=== PATIENT | female | born 1975 | race Caucasian/White ===

== ENCOUNTER → 2020-04-16 | Outpatient (CLI) | payer OTHER ==
[~2020-04-16] MED LIST: ASCO-184 PO; ASPI81TA45 PO; BUSP7.5T5 PO; CALC1CAP8 PO; DULO30CA2 PO; FISH1CAP PO; LOSA1TAB25 PO; MELO7.5T31 PO; METF500T17 PO; OXYC5CAP2 PO; PRAV20TA2 PO; TRAM50TA2 PO; TRAZ50TA66 PO; VITAMIN B12 PO; [UNRECOGNIZED DRUG - OTHER] PO
[2020-04-16 12:12] LABS: BASOPHILS % (AUTO) 1 % (0-1); EOSINOPHILS % (AUTO) 1 % (1-7); LYMPHOCYTES % (AUTO) 21 % (22-44); MEAN CORPUSCULAR HEMOGLOBIN 36.4 pg (27.0-34.8); MEAN PLATELET VOLUME 7.8 fL (7.4-10.4); MONOCYTES % (AUTO) 9 % (2-9); NEUTROPHILS % (AUTO) 67 % (42-75); PLATELET COUNT 233 x10^3/uL (130-400); RED BLOOD COUNT 3.91 x10^6/uL (3.82-5.3); RED CELL DISTRIBUTION WIDTH 17.1 % (9.6-15.2)
[2020-04-16 12:19] LABS: MD NO
[2020-04-16 12:23] LABS: ALANINE AMINOTRANSFERASE 24 U/L (12-78); ALBUMIN 3.6 g/dL (3.4-5.0); ANION GAP 4 mmol/L (5-15); CALCIUM 10.1 mg/dL (8.5-10.1); CHLORIDE 101 mmol/L (98-107)
[2020-04-16 12:25] LABS: INTERNATIONAL NORMALIZED RATIO 0.96 (0.93-1.1); PROTHROMBIN TIME 10.2 Seconds (9.6-11.5)
[2020-04-16 12:26] LABS: ALKALINE PHOSPHATASE 106 U/L (45-117); BILIRUBIN,TOTAL 0.6 mg/dL (0.2-1.0); TOTAL PROTEIN 7.1 g/dL (6.4-8.2)
== END | disposition home or self-care (01) ==
LOC: STAR 11:10
PROVIDERS: ATTEND Orthopaedic Surgery
DX: Z01.810 Encounter for preprocedural cardiovascular examination (principal); Z01.818 Encounter for other preprocedural examination; M16.11 Unilateral primary osteoarthritis, right hip; M25.551 Pain in right hip; Z20.828 Contact with and (suspected) exposure to other viral communicable diseases; Z79.01 Long term (current) use of anticoagulants
CPT/HCPCS: 80053; 83036; 85025; 85610; 85730; 87081; 87635; 93005

== ENCOUNTER 2020-04-22 06:43 | Day surgery (SDC) | payer OTHER ==
[~2020-04-22] VITALS: Ht 165.1 cm; Wt 104.2 kg
[2020-04-22] MEDS ORDERED: SODIUM CHLORIDE 0.9% 50 ML ONE (06:47)
[2020-04-22] MEDS ORDERED: ROPIvacaine/PF 0.5%, 20 ML ONE (06:47)
[2020-04-22] MEDS ORDERED: ROPIvacaine/PF 0.5%, 30 ML ONE (06:47)
[2020-04-22] MEDS ORDERED: KETOROLAC 60 MG/2 ML ONE (06:47)
[2020-04-22] MEDS ORDERED: EPINEPHRINE 1 MG/ML, 1ML ONE (06:47)
[2020-04-22] MEDS ORDERED: TRANEXAMIC ACID 100 MG/ML, 10ML ONE ×2 (06:47)
[2020-04-22] MEDS ORDERED: VANCOMYCIN 1,000 MG ONE (06:47)
[2020-04-22] MEDS ORDERED: CHLORHEXIDINE 15 ML UDC MM ONE (07:00)
[2020-04-22] MEDS ORDERED: GABAPENTIN 300 MG CAPSULE PO ONE (07:00)
[2020-04-22] MEDS ORDERED: ACETAMINOPHEN 500 MG TABLET PO ONE (07:00)
[2020-04-22] MEDS ORDERED: ONDANSETRON 4 MG TABLET PO PRN (07:00)
[2020-04-22] MEDS ORDERED: NS + 20MEQ KCL 1,000 ML IV SCH (07:00)
[2020-04-22] MEDS ORDERED: HYDROcodone/APAP 5/325 TABLET PO PRN (07:00)
[2020-04-22] MEDS ORDERED: ZOLPIDEM 5MG TABLET PO PRN (07:00)
[2020-04-22] MEDS ORDERED: DIPHENHYDRAMINE 50 MG CAPSULE PO PRN (07:00)
[2020-04-22] MEDS ORDERED: OXYcodone IR 5MG TABLET PO PRN (07:00)
[2020-04-22] MEDS ORDERED: LACTATED RINGERS 1,000 ML IV SCH (07:00)
[2020-04-22] MEDS ORDERED: SENNA/DOCUSATE TABLET PO PRN (07:00)
[2020-04-22] MEDS ORDERED: ONDANSETRON 2MG/ML, 2ML IV PRN (07:00)
[2020-04-22] MEDS ORDERED: MAGNESIUM HYDROXIDE 8%, 30ML UDC PO PRN (07:00)
[2020-04-22] MEDS ORDERED: ACETAMINOPHEN 650 MG/20.3 ML UDC PO PRN (07:00)
[2020-04-22] MEDS ORDERED: BISACODYL 10 MG SUPP PR PRN (07:00)
[2020-04-22] MEDS ORDERED: SENN1TAB68 PO (07:02)
[2020-04-22 07:06] VITALS: BP 131/86
[2020-04-22] MEDS ORDERED: MIDAZOLAM 1 MG/ML, 2ML ONE (07:31)
[2020-04-22] MEDS ORDERED: FENTANYL PF 250 MCG/5ML ONE ×2 (07:31→10:17)
[2020-04-22] MEDS ORDERED: ROCURONIUM 10MG/ML,5ML ONE (07:32)
[2020-04-22] MEDS ORDERED: ONDANSETRON 2MG/ML, 2ML ONE (07:32)
[2020-04-22] MEDS ORDERED: PROPOFOL 10 MG/ML, 20ML ONE (07:32)
[2020-04-22] MEDS ORDERED: GLYCOPYRROLATE 0.2MG/1ML, 5ML ONE (07:32)
[2020-04-22] MEDS ORDERED: CEFAZOLIN 1,000 MG ONE (07:32)
[2020-04-22] MEDS ORDERED: NEOSTIGMINE 1 MG/ML, 10ML ONE (07:32)
[2020-04-22 07:34] LABS: HCG UR SG 1.023 (1.003-1.030)
[2020-04-22] MEDS ORDERED: ACETAMINOPHEN 325 MG TABLET PO PRN (09:00)
[2020-04-22] MEDS ORDERED: metFORMIN 500 MG TABLET PO SCH (09:00)
[2020-04-22] MEDS ORDERED: OXYcodone 5 MG/5 ML ORAL.SOL UDC PO PRN (09:00)
[2020-04-22] MEDS ORDERED: HALOPERIDOL 5 MG/ML IV PRN (09:00)
[2020-04-22] MEDS ORDERED: morphine SULFATE 10 MG/ML, 1ML IVPush PRN (09:00)
[2020-04-22] MEDS ORDERED: FENTANYL PF 100 MCG/2ML IV PRN (09:00)
[2020-04-22] MEDS ORDERED: DOCUSATE 100 MG CAPSULE PO SCH (09:00)
[2020-04-22] MEDS ORDERED: PROMETHAZINE 25 MG/ML, 1ML IVPush PRN (09:00)
[2020-04-22] MEDS ORDERED: HYDROmorphone 1 MG/ML, 1ML INJ IVPush PRN (09:00)
[2020-04-22] MEDS ORDERED: MEPERIDINE/PF 25MG/0.5ML IVPush PRN (09:00)
[2020-04-22] MEDS ORDERED: hydrALAzine 20 MG/ML, 1ML IV PRN (09:00)
[2020-04-22] MEDS ORDERED: LABETALOL 5MG/ML, 20ML IV PRN (09:00)
[2020-04-22] MEDS ORDERED: DEXAMETHASONE 4 MG/ML, 1ML ONE (09:50)
[2020-04-22] MEDS ORDERED: FENTANYL PF 100 MCG/2ML ONE ×4 (10:31→11:23)
[2020-04-22] MEDS ORDERED: OXYcodone 5 MG/5 ML ORAL.SOL UDC ONE (11:24)
[2020-04-22] MEDS ORDERED: METHOCARBAMOL 1,000 MG in DEXTROSE 5% 100 ML IV ONE (12:00)
[2020-04-22] MEDS ORDERED: CEFAZOLIN PMX 2GM/50ML 50 ML IVPB SCH (15:30)
[2020-04-22] MEDS ORDERED: ASPIRIN 81 MG TABLET EC PO SCH (18:00)
[2020-04-22] MEDS ORDERED: PRAVASTATIN 20 MG TABLET PO SCH (21:00)
== END 2020-04-22 14:50 | disposition home or self-care (01) ==
LOC: OUT 06:43
PROVIDERS: ATTEND Orthopaedic Surgery
DX: M16.11 Unilateral primary osteoarthritis, right hip (principal); M25.751 Osteophyte, right hip; I10 Essential (primary) hypertension; E11.9 Type 2 diabetes mellitus without complications; E78.5 Hyperlipidemia, unspecified; Z79.1 Long term (current) use of non-steroidal anti-inflammatories (NSAID); Z79.82 Long term (current) use of aspirin; Z79.84 Long term (current) use of oral hypoglycemic drugs; Z79.891 Long term (current) use of opiate analgesic; Z79.899 Other long term (current) drug therapy; Z82.61 Family history of arthritis
CPT/HCPCS: 27130; 72170; 73501; 81025; 82962; 97161; C1713; C1776; J0171; J0690; J1100; J1885; J2250; J2405; J2704; J2710; J2795; J2800; J3010; J3370; J7120; 76000